=== PATIENT | female | born 1975 | race Caucasian/White ===

== ENCOUNTER 2018-05-21 02:07 | Emergency (ER) | payer SELFPAY | END 2018-05-21 03:11 | disposition home or self-care (01) | LOC: ER 02:16 | DX: B86 Scabies (principal); F41.9 Anxiety disorder, unspecified; Z59.0 Homelessness ==

== ENCOUNTER 2018-07-30 23:05 | Emergency (ER) | payer BC ==
[~2018-07-30] VITALS: Ht 167.6 cm; Wt 54.9 kg
[2018-07-30 23:42] VITALS: BP 125/86
[2018-07-30 23:54] LABS: APPEARANCE,URINE Slightly Cloudy (CLEAR); BILIRUBIN,URINE SMALL (NEGATIVE); BLOOD, URINE Negative Ery/uL (NEGATIVE); COLOR,URINE Orange (YELLOW); KETONES,URINE Trace (NEGATIVE); LEUKOCYTE ESTERASE ,URINE Large (NEGATIVE); NITRITE, URINE Positive (NEGATIVE); PROTEIN,URINE 100 mg/dl (NEGATIVE); UGLUCOSE 100 MG/DL mg/dL (NEGATIVE)
[2018-07-31 00:11] LABS: BACTERIA,URINE Many /HPF (None Seen); RBC,URINE 0-2 /HPF (0-2); SQUAMOUS EPITHELIAL CELL,UR Few /HPF (None Seen); WBC,URINE 21-50 /HPF (0-3)
== END 2018-07-31 00:31 | disposition home or self-care (01) ==
LOC: ER 23:07
DX: N39.0 Urinary tract infection, site not specified (principal); F41.9 Anxiety disorder, unspecified; Z59.0 Homelessness
CPT/HCPCS: 81000-TC; 84703-TC; 87086-TC; 87186-TC

== ENCOUNTER 2018-08-21 15:03 | Emergency (ER) | payer BC ==
[~2018-08-21] VITALS: Ht 167.6 cm; Wt 61.2 kg
[2018-08-21 15:19] VITALS: BP 132/65
[2018-08-21 16:22] LABS: APPEARANCE,URINE Cloudy (CLEAR); BILIRUBIN,URINE SMALL (NEGATIVE); BLOOD, URINE Large Ery/uL (NEGATIVE); COLOR,URINE Yellow (YELLOW); KETONES,URINE Negative (NEGATIVE); LEUKOCYTE ESTERASE ,URINE Trace (NEGATIVE); NITRITE, URINE Negative (NEGATIVE); PH,URINE 5.5 (5.0-8.0); PROTEIN,URINE 30 mg/dl (NEGATIVE); UGLUCOSE Negative (NEGATIVE); UROBILINOGEN,URINE 0.2 EU/dL (0.2)
[2018-08-21 16:33] LABS: BACTERIA,URINE 1+ /HPF (None Seen); SQUAMOUS EPITHELIAL CELL,UR Few /HPF (None Seen)
== END 2018-08-21 16:58 | disposition home or self-care (01) ==
LOC: ER 15:08
DX: B86 Scabies (principal); N39.0 Urinary tract infection, site not specified; N76.0 Acute vaginitis; F41.9 Anxiety disorder, unspecified; Z59.0 Homelessness
CPT/HCPCS: 81000-TC; 84703-TC; 87086-TC; 87186-TC

== ENCOUNTER 2018-10-25 05:48 | Emergency (ER) | payer BC ==
[~2018-10-25] VITALS: Ht 167.6 cm; Wt 54.4 kg
[2018-10-25 06:25] VITALS: BP 121/84
== END 2018-10-25 06:46 | disposition home or self-care (01) ==
LOC: ER 05:50
DX: F15.10 Other stimulant abuse, uncomplicated (principal); B86 Scabies; F41.9 Anxiety disorder, unspecified; Z59.0 Homelessness

== ENCOUNTER 2018-11-03 05:29 | Emergency (ER) | payer BC ==
[~2018-11-03] VITALS: Ht 170.2 cm; Wt 59.0 kg
[2018-11-03 05:33] VITALS: BP 90/59
--- NOTE | 2018-11-03 07:40 | NUR ---
URINE SAMPLE SENT TO LAB
[2018-11-03 07:48] LABS: APPEARANCE,URINE Turbid (CLEAR); BILIRUBIN,URINE SMALL (NEGATIVE); BLOOD, URINE Negative Ery/uL (NEGATIVE); COLOR,URINE Amber (YELLOW); KETONES,URINE Trace (NEGATIVE); LEUKOCYTE ESTERASE ,URINE Trace (NEGATIVE); NITRITE, URINE Positive (NEGATIVE); PROTEIN,URINE 100 mg/dl (NEGATIVE); UGLUCOSE 100 MG/DL mg/dL (NEGATIVE)
[2018-11-03 08:02] LABS: BACTERIA,URINE Moderate /HPF (None Seen); SQUAMOUS EPITHELIAL CELL,UR Moderate /HPF (None Seen)
== END 2018-11-03 07:47 | disposition home or self-care (01) ==
LOC: ER 05:35
DX: N39.0 Urinary tract infection, site not specified (principal); F41.9 Anxiety disorder, unspecified; Z59.0 Homelessness
CPT/HCPCS: 81000-TC; 87086-TC

== ENCOUNTER 2019-01-30 06:49 | Emergency (ER) | payer BC, MEDICAID ==
[~2019-01-30] VITALS: Ht 170.2 cm; Wt 54.4 kg
[2019-01-30 07:14] VITALS: BP 107/62
[2019-01-30] MEDS ORDERED: METRONIDAZOLE 500 MG TABLET PO ONE (07:30)
[2019-01-30] MEDS ORDERED: METRONIDAZOLE 500 MG TABLET ONE (07:34)
--- NOTE | 2019-01-30 07:41 | NUR ---
Patient discharged to home in stable condition. Written and verbal after care instructions given. Patient verbalizes understanding of instruction. Prescription given to patient. Unable to depart patient due to meditech issue.
== END 2019-01-30 07:45 | disposition home or self-care (01) ==
LOC: ER 06:51
DX: B86 Scabies (principal); N76.0 Acute vaginitis; F41.9 Anxiety disorder, unspecified; Z59.0 Homelessness

== ENCOUNTER 2021-01-20 19:48 | Emergency (ER) | payer MEDICAID, OTHER ==
--- NOTE | 2021-01-20 20:33 | NUR ---
CALLED FOR TRIAGE. NO ANSWER
--- NOTE | 2021-01-20 20:41 | NUR ---
CALLED FOR TRIAGE. NO ANSWER
--- NOTE | 2021-01-20 21:27 | NUR ---
called for triage, not in waiting room.
== END 2021-01-20 21:34 | disposition left against medical advice (07) ==
LOC: ER 19:49
DX: Z53.21 Procedure and treatment not carried out due to patient leaving prior to being seen by health care provider (principal)

== ENCOUNTER 2021-04-15 09:10 | Emergency (ER) | payer OTHER ==
[~2021-04-15] VITALS: Ht 170.2 cm; Wt 59.0 kg
--- NOTE | 2021-04-15 09:29 | NUR ---
URINE SAMPLE COLLECTED AND SENT TO LAB
[2021-04-15 09:47] LABS: BILIRUBIN,URINE MODERATE (NEGATIVE); COLOR,URINE ORANGE (YELLOW); LEUKOCYTE ESTERASE ,URINE Large (NEGATIVE); NITRITE, URINE Positive (NEGATIVE); PROTEIN,URINE 100 mg/dl (NEGATIVE); UGLUCOSE 250 MG/DL mg/dL (NEGATIVE); UROBILINOGEN,URINE >=8.0 EU/dL (0.2)
[2021-04-15] MEDS ORDERED: CEPH500T PO (09:47)
[2021-04-15 09:49] LABS: BACTERIA,URINE 2+ /HPF (None Seen); RBC,URINE NONE SEEN /HPF (0-2); SQUAMOUS EPITHELIAL CELL,UR Few /HPF (None Seen)
[2021-04-15 09:51] VITALS: BP 110/68
--- NOTE | 2021-04-15 09:51 | NUR ---
Patient discharged to home in stable condition. Written and verbal after care instructions given. Patient verbalizes understanding of instruction.
== END 2021-04-15 09:52 | disposition home or self-care (01) ==
LOC: ER 09:13
DX: N39.0 Urinary tract infection, site not specified (principal); F41.9 Anxiety disorder, unspecified; Z59.00 Homelessness unspecified
CPT/HCPCS: 81001; 84703-TC; 87086-TC